=== PATIENT | female | born 1955 | race Caucasian/White ===

== ENCOUNTER 2020-07-20 13:55 | Outpatient (CLI) | payer MEDICARE ==
--- NOTE | 2020-07-20 14:15 | ULT ---
GALLBLADDER ULTRASOUND: HISTORY:Epigastric pain FINDINGS: The liver demonstrates homogeneous echotexture without focal mass or intrahepatic biliary ductal dila tation. No gallstones, gallbladder wall thickening or pericholecystic fluid are seen. The right kidney and pancreas are normal. The common duct [id number] in diameter. No free fluid is seen in the Shen's pouch. IMPRESSION: Normal exam.
== END 2020-07-20 13:56 | disposition home or self-care (01) ==
LOC: BICULT 13:55
PROVIDERS: ATTEND Internal Medicine Gastroenterology
DX: R10.13 Epigastric pain (principal)
CPT/HCPCS: 76705